=== PATIENT | female | born 1945 | race Caucasian/White ===

== ENCOUNTER → 2017-07-13 | Day surgery (SDC) | payer OTHER ==
--- NOTE | 2017-07-14 11:56 | PATH ---
Surgical Pathology Report Patient Name: ALEXANDER HDEZ [facility]. Rec. #: [id number] /Age/Gender: 1945 (Age: 71) / F Account: [id number] Location: [facility] Taken: 07/13/2017 Received: 07/13/2017 Reported: 07/14/2017 Physicians: Ni Aranda M.D. Specimen(s) Received A: RIGHT BREAST SPECIMEN WITH CALCIFICATIONS B: RIGHT BREAST SPECIMEN WITHOUT CALCIFICATIONS Clinical History Nonpalpable lesion Mammographic findings: Microcalcification, suspicious Final Diagnosis A. RIGHT BREAST, WITH CALCIFICATION, STEREOTACTIC NEEDLE CORE BIOPSY: BENIGN BREAST TISSUE WITH FIBROCYSTIC CHANGES INCLUDING STROMAL FIBROSIS AND DUCTAL DILATATION, WITH ASSOCIATED CALCIFICATION. B. RIGHT BREAST, WITHOUT CALCIFICATION, STEREOTACTIC NEEDLE CORE BIOPSY: BENIGN BREAST TISSUE WITH FIBROCYSTIC CHANGES INCLUDING STROMAL FIBROSIS AND DUCTAL DILATATION. Electronically Signed Da Yung M.D. Gross Description A. Received in formalin, labeled "right breast with calcifications," are 3 garrido-yellow, cylindrical portions of fibroadipose tissue ranging from 2.0-2.5 cm. in length and averaging 0.3 cm. in diameter. The specimen is submitted in toto in one cassette. B. Received in formalin labeled "right breast without calcifications," is a 2.3 x 2.0 x 0.3 cm aggregate of multiple garrido-yellow, irregular to cylindrical portions of fibroadipose tissue. The formalin is filtered and the specimen is entirely submitted in one cassette. Time to formalin fixation: 5 minutes Total formalin fixation time: Approximately 6 hours. 07/13/2017 [facility]07/13/2017
== END | disposition home or self-care (01) ==
LOC: FMAMMOTONE 11:36
PROVIDERS: ATTEND Surgery Surgical Oncology
PROC: 0HBT3ZX Excision of Right Breast, Percutaneous Approach, Diagnostic (ICD-10-PCS; principal; 2017-07-13)
DX: N60.31 Fibrosclerosis of right breast (principal); R92.1 Mammographic calcification found on diagnostic imaging of breast; N64.89 Other specified disorders of breast
CPT/HCPCS: 19081; 87899; 88305-TC; A4648

== ENCOUNTER 2022-02-17 09:41 | Emergency (ER) | payer OTHER ==
[2022-02-17 09:50] VITALS: BP 151/70; PULSE 74; TEMP 98; BMI 29.1
[2022-02-17] MEDS ORDERED: ACETAMINOPHEN 325 MG TABLET (FP) PO ONE (10:09)
[2022-02-17] MEDS ORDERED: ACETAMINOPHEN 325 MG TABLET (FP) ONE (10:21)
== END 2022-02-17 11:13 | disposition home or self-care (01) ==
LOC: JER 09:41
DX: S42.222A 2-part displaced fracture of surgical neck of left humerus, initial encounter for closed fracture (principal); W01.0XXA Fall on same level from slipping, tripping and stumbling without subsequent striking against object, initial encounter
CPT/HCPCS: 73030-TC-LT-FY; 99283-25